=== PATIENT | female | born 1965 | race Caucasian/White ===

== ENCOUNTER → 2021-01-03 | Outpatient (CLI) | payer OTHER ==
--- NOTE | 2021-01-06 08:10 | RAD ---
DATE: 01/03/2021 2:14 PM EXAM: DIGITAL SCREEN BILAT W/CAD HISTORY: Screening COMPARISON: 10/09/2016 Bilateral CC and MLO views of the breasts were performed. Bilateral breast tomosynthesis was performed in CC and MLO projections. This study was interpreted with the benefit of Computerized Aided Detection (CAD). FINDINGS: Breast Density: SCATTERED The breast parenchyma shows scattered fibroglandular densities. Breast parenchyma level B No suspicious masses, microcalcifications or architectural distortion is present to suggest malignancy in either breast. The visualized axillae are unremarkable. IMPRESSION: No mammographic evidence of malignancy. BI-RADS CATEGORY: 1 NEGATIVE RECOMMENDED FOLLOW-UP: 12M 12 MONTH FOLLOW-UP Annual screening mammography is recommended, unless clinically indicated sooner based on symptoms or change in physical exam. PQRS compliance statement: Patient information was entered into a reminder system with a target due date for the next mammogram. Mammography is a sensitive method for finding small breast cancers, but it does not detect them all and is not a substitute for careful clinical examination. A negative mammogram does not negate a clinically suspicious finding and should not result in delay in biopsying a clinically suspicious abnormality. "Our facility is accredited by the [employer] Mammography Program."
== END ==
LOC: MAMMO 14:06
PROVIDERS: ATTEND Nurse Practitioner Family
DX: Z12.31 Encounter for screening mammogram for malignant neoplasm of breast (principal)
CPT/HCPCS: 77067

== ENCOUNTER → 2021-03-07 | Outpatient (CLI) | payer OTHER ==
--- NOTE | 2021-03-07 12:00 | RAD ---
EXAM: Chest, 2 views. HISTORY: Chest pain. Productive cough. COMPARISON: None. FINDINGS: 2 views of the chest are obtained. There is a 2.8 cm right lower lobe pulmonary nodule. The re is no consolidation, protrusion or pneumothorax. The heart is normal in size. IMPRESSION: 1. Right lower lobe pulmonary nodule. This can be better assessed with a CT. 2. No acute pulmonary finding. Electronically signed by: Patricia Katz MD (03/07/2021 11:58 AM) [id number]
== END ==
LOC: RAD 11:24
PROVIDERS: ATTEND Nurse Practitioner Family
DX: R91.1 Solitary pulmonary nodule (principal)
CPT/HCPCS: 71046

== ENCOUNTER 2021-05-20 12:57 | Emergency (ER) | payer SELFPAY ==
[~2021-05-20] VITALS: Ht 165.1 cm; Wt 83.0 kg
--- NOTE | 2021-05-20 13:05 | PHYS DOC ---
General Adult EDM: Chief Complaint: LOWER EXT PAIN HPI: HPI: 56 yo F PMH copd presents to the ed bibems with c/o shortness of breath x2 days with associated ankle swelling and "burning." Is not vaccinated for covid. Stoppped smoking 3 days ago. Reports she has an outpt CT of the lungs pending, ordered by [facility] stating "I don't know why." Reports a breathing treatment more than 4 hours ago. Review of Systems: Review of Systems: Constitutional: Denies fever or chills Eyes: Denies change in visual acuity HENT: Denies nasal congestion or sore throat Respiratory: Denies cough or hemoptysis Cardiovascular: Denies chest pain or edema GI: Denies nausea, vomiting, : Denies dysuria or hematuria Musculoskeletal: Denies back pain or joint deformity Integument: Denies rash or diaphoresis Neurologic: Denies headache, focal weakness or sensory changes Endocrine: Denies polyuria or polydipsia Lymphatic: Denies swollen glands Psychiatric: Denies depression or anxiety Physical Exam: PE: Constitutional: Well developed, well nourished, no acute distress, non-toxic appearance. HENT: Normocephalic, atraumatic, Eyes: EOMI, conjunctiva normal, no discharge. Neck: Normal range of motion, supple, Cardiovascular: S1/2 present, mild tachycardia on arrival Lungs & Thorax: Speaking in full sentences, bilateral equal chest rise, no tachypnea or increased work of breathing, faint expiratory wheezing, no rales/crackles Abdomen: soft, no tenderness, Skin: Warm, dry, Back: No tenderness, no CVA tenderness. [] Extremities: No tenderness, no cyanosis, no unilateral lower extremity edema- cannot appreciated edema Neurologic: Alert and oriented X 3, normal motor function, normal sensory function, no focal deficits noted, steady gait requiring no supplemental oxygen/no labored breathing Psychologic: Affect normal, judgement normal, mood normal. [] EKG: EKG: Sinus rhythm 90 bpm, no axis deviation, normal intervals, no T wave inversion, no ST elevations or ST depressions Radiology/Procedures: Radiology/Procedures: IMAGING REPORT Signed PATIENT: SHERLYN HENNING ACCOUNT: [id number] : 1965 LOCATION: ER AGE: 56 SEX: F EXAM STATUS: PRE ER ORD. PHYSICIAN: JESSICA LOZANO DO REASON: leg swelling, r/o dvt, PROCEDURE: VENOUS LOWER EXT BILATERAL INDICATION: Reason: leg swelling, r/o dvt, / Spl. Instructions: / History: COMPARISON: None. TECHNIQUE: Grayscale, color and doppler ultrasound images were obtained of the bilateral lower extremity venous vasculature. RIGHT: No thrombus identified in the common femoral vein, femoral vein, popliteal vein or visualized calf veins. LEFT: No thrombus identified in the common femoral vein, femoral vein, popliteal vein or visualized calf veins. IMPRESSION: * No thrombus identified in deep venous system of bilateral lower extremities. Electronically signed by: Mariano Allison MD (05/20/2021 1:58 PM) [id number] DICTATED AND SIGNED BY: MARIANO ALLISON MD DATE: 05/20/21 1355 CC: PALAK RIBEIRO; JESSICA LOZANO DO ~MTH0 0 IMAGING REPORT Signed PATIENT: SHERLYN HENNING ACCOUNT: [id number] : 1965 LOCATION: ER AGE: 56 SEX: F EXAM STATUS: REG ER ORD. PHYSICIAN: JESSICA LOZANO DO REASON: soa, r/o pe PROCEDURE: CT ANGIOGRAPHY CHEST EXAM: CT chest with contrast - pulmonary embolus protocol CLINICAL HISTORY: Reason: soa, r/o pe / Spl. Instructions: / History: . COMPARISON: 05/20/2021, 03/07/2021. TECHNIQUE: CT of the chest following the administration of intravenous contrast during the pulmonary arterial phase. Axial, coronal and sagittal reformatted images were generated including MIP images. ---PQRS compliance statement - One or more of the following individualized dose reduction techniques were utilized for this study: 1. Automated exposure control 2. Adjustment of the mA and/or kV according to patient size 3. Use of iterative reconstruction technique--- FINDINGS: CHEST: Diagnostic quality: Suboptimal. Pulmonary emboli: No pulmonary emboli to the level of the distal segmental branches. More peripheral vessels are not well assessed. Right heart strain: None Pulmonary arteries: Normal in caliber. Heart is not enlarged. No pericardial effusion. No pleural effusion or pneumothorax. Right lower lobe lung nodule measures 3.7 x 3 x 3.7 centimeters (series 4 image 85). Small satellite right hilar measures 1.5 x 1.2 cm. No lobar consolidation. No definite mediastinal or hilar lymphadenopathy. No axillary lymphadenopathy. A 1.6 x 1 cm hypodense left lower pole thyroid nodule is seen. Visualized Upper abdomen: Focal nodularity of the right kidney is partially profiled, possibly physiologic or from underlying kidney lesion, incompletely assessed. Bones: No aggressive osseous lesion is seen. Degenerative changes of the spine are seen. Chronic deformity of the sternum likely from old fracture. IMPRESSION: 1. Suboptimal contrast bolus limits evaluation for acute pulmonary embolus. Within these constraints, no definite pulmonary embolus to the distal segmental branches. More peripheral vessels are not well seen. 2. Right lower lobe hypodense lung mass measures 3.7 cm with 1.5 cm satellite nodule in the right hilum. The necrotic mass is a primary consideration and further evaluation with PET scan is recommended. 3. Equivocal right renal mass, only partially visualized. This can be further assessed by ultrasound or abdominal CT. 4. Hypodense left lower pole thyroid nodule can be further assessed by thyroid ultrasound. Electronically signed by: Thanh Chang MD (05/20/2021 3:17 PM) [facility] DICTATED AND SIGNED BY: THANH CHANG MD DATE: 05/20/21 1507 Heart Score: C/O Chest Pain: No Risk Factors: Risk Factors: DM, Current or recent (<one month) smoker, HTN, HLP, family history of CAD, obesity. Risk Scores: Score 0 - 3: 2.5% MACE over next 6 weeks - Discharge Home Score 4 - 6: 20.3% MACE over next 6 weeks - Admit for Clinical Observation Score 7 - 10: 72.7% MACE over next 6 weeks - Early Invasive Strategies Course & Med Decision Making: Course & Med Decision Making Pertinent Labs and Imaging studies reviewed. (See chart for details) Concern for right lower lobe pulmonary nodule with hilar nodule, necrotic lung consolidation on differential and a chronic smoker with no wheezing, requiring no supplemental oxygen. Patient does not meet sepsis criteria. Will admit for PET scan and/or higher level of care with pulmonary consultation. Patient stable at time of transfer and agrees with this plan. I have spoken with the patient and/or caregivers. I have explained the patient's condition, diagnosis and treatment plan based on the information available to me at this time. I have answered the patient's and/or caregivers questions and answered any concerns. The patient and/or caregivers have as good an understanding of the patient's diagnosis, condition and treatment plan as can be expected at this point. The patient has been stabilized within the capability of the emergency department. The patient will be transported for further care and management or will be moved to an observation or inpatient service. I have communicated with the staff or medical practitioner taking over this patient's care. Dragon Disclaimer: Dragon Disclaimer: This electronic medical record was generated, in whole or in part, using a voice recognition dictation system. Departure Departure: Impression: Primary Impression: Right lower lobe pulmonary nodule Additional Impressions: Dyspnea COPD (chronic obstructive pulmonary disease) Disposition: 02 [facility] (to [facility], Dr. Mcmahon) Condition: STABLE Referrals: PALAK RIBEIRO (PCP) JESSICA LOZANO DO May 20, 2021 13:05
[2021-05-20 13:41] LABS: BASO # 0.1 x10^3/uL (0.0-0.2); BASO % 1 % (0-3); EOS # 0.2 x10^3/uL (0.0-0.7); EOS % 3 % (0-3); HEMATOCRIT 34.8 % (36.0-47.0); HEMOGLOBIN 11.8 g/dL (12.0-15.5); LYMPH # 1.6 x10^3/uL (1.0-4.8); LYMPH % 27 % (24-48); MEAN CORPUSCULAR HEMOGLOBIN 33 pg (25-35); MEAN CORPUSCULAR HGB CONC 34 g/dL (31-37); MEAN CORPUSCULAR VOLUME 98 fL (79-100); MONO # 0.3 x10^3/uL (0.0-1.1); MONO % 5 % (0-9); NEUT # 3.7 x10^3uL (1.8-7.7); NEUT % 63 % (31-73); PLATELET COUNT 266 x10^3/uL (140-400); RED BLOOD COUNT 3.55 x10^6/uL (3.50-5.40); RED CELL DISTRIBUTION WIDTH 13.3 % (11.5-14.5); WHITE BLOOD COUNT 5.9 x10^3/uL (4.0-11.0)
[2021-05-20 13:47] LABS: CALCIUM 8.4 mg/dL (8.5-10.1); CREATININE 0.9 mg/dL (0.6-1.0); GFR 64.3; POTASSIUM 4.1 mmol/L (3.5-5.1)
[2021-05-20 14:00] LABS: ALBUMIN 3.5 g/dL (3.4-5.0); TOTAL BILIRUBIN 0.2 mg/dL (0.2-1.0)
--- NOTE | 2021-05-20 14:01 | RAD ---
INDICATION: Reason: leg swelling, r/o dvt, / Spl. Instructions: / History: COMPARISON: None. TECHNIQUE: Grayscale, color and doppler ultrasound images were obtained of the bilateral lower extrem ity venous vasculature. RIGHT: No thrombus identified in the common femoral vein, femoral vein, popliteal vein or visualized calf ve ins. LEFT: No thrombus identified in the common femoral vein, femoral vein, popliteal vein or visualized calf ve ins. IMPRESSION: * No thrombus identified in deep venous system of bilateral lower extremities. Electronically signed by: Srinivas Bains MD (05/20/2021 1:58 PM) [id number]
--- NOTE | 2021-05-20 14:25 | EKG ---
[address] [address] Test Date: 2021-05-20 Test Time: 13:09:19 Pat Name: SHERLYN HENNING Department: Room: Gender: F Mine Promotor: LEIA : 1965 Requested By: JESSICA LOZANO Order Number: [id number] Reading MD: Measurements Intervals [place] Rate: 99 P: 23 MS: 172 QRS: 25 QRSD: 78 T: 46 QT: 350 QTc: 455 Interpretive Statements SINUS RHYTHM NO SPECIFIC ECG ABNORMALITIES RI6.02 No previous ECG available for comparison
[2021-05-20] MEDS ORDERED: IOHEXOL 350 MG/ML 100 ML VIAL. IV ONE (14:30)
--- NOTE | 2021-05-20 15:19 | RAD ---
EXAM: CT chest with contrast - pulmonary embolus protocol CLINICAL HISTORY: Reason: soa, r/o pe / Spl. Instructions: / History: . COMPARISON: 05/20/2021, 03/07/2021. TECHNIQUE: CT of the chest following the administration of intravenous contrast during the pulmonary arterial phase. Axial, coronal and sagittal reformatted images were generated including MIP images. ---PQRS compliance statement - One or more of the following individualized dose reduction techniques were utilized for this study: 1. Automated exposure control 2. Adjustment of the mA and/or kV according to patient size 3. Use of iterative reconstruction technique--- FINDINGS: CHEST: Diagnostic quality: Suboptimal. Pulmonary emboli: No pulmonary emboli to the level of the distal segmental branches. More peripheral vessels are not well assessed. Right heart strain: None Pulmonary arteries: Normal in caliber. Heart is not enlarged. No pericardial effusion. No pleural effusion or pneumothorax. Right lower lobe lung nodule measures 3.7 x 3 x 3.7 centimeters (series 4 image 85). Small satellite right hilar measures 1.5 x 1.2 cm. No lobar consolidation. No definite mediastinal or hilar lymphadenopathy. No axillary lymphadenopathy. A 1.6 x 1 cm hypodense left lower pole thyroid nodule is seen. Visualized Upper abdomen: Focal nodularity of the right kidney is partially profiled, possibly physi ologic or from underlying kidney lesion, incompletely assessed. Bones: No aggressive osseous lesion is seen. Degenerative changes of the spine are seen. Chronic defo rmity of the sternum likely from old fracture. IMPRESSION: 1. Suboptimal contrast bolus limits evaluation for acute pulmonary embolus. Within these constraints , no definite pulmonary embolus to the distal segmental branches. More peripheral vessels are not wel l seen. 2. Right lower lobe hypodense lung mass measures 3.7 cm with 1.5 cm satellite nodule in the right hi lum. The necrotic mass is a primary consideration and further evaluation with PET scan is recommended . 3. Equivocal right renal mass, only partially visualized. This can be further assessed by ultrasound or abdominal CT. 4. Hypodense left lower pole thyroid nodule can be further assessed by thyroid ultrasound. Electronically signed by: Thanh Segovia MD (05/20/2021 3:17 PM) [facility]
[2021-05-20 18:52] VITALS: BP 120/83
== END 2021-05-20 19:23 | disposition short-term general hospital (02) ==
LOC: ER 12:57
DX: J44.9 Chronic obstructive pulmonary disease, unspecified (principal); R91.1 Solitary pulmonary nodule; R06.02 Shortness of breath
CPT/HCPCS: 36415; 71045; 71275; 80053; 83880; 84484; 85025; 93005; 93970; 99285; Q9967

== ENCOUNTER 2022-02-27 12:23 | Emergency (ER) | payer OTHER ==
[~2022-02-27] VITALS: Ht 165.1 cm; Wt 92.7 kg
--- NOTE | 2022-02-27 12:32 | PHYS DOC ---
Past History Past Medical History: Cancer, COPD, Hypertension Additional Past Medical Histor: Lung CA Past Surgical History: Tubal ligation Smoking: Quit Greater Than 1 Year Alcohol Use: Rarely Drug Use: None General Adult EDM: Chief Complaint: MECHANICAL FALL HPI: HPI: Pt is a 56 yo F with a hx of lung CA presents via EMS c/o a fall 2 days ago. Pt slipped and fell while mopping and hit the back of her head on her wood bed frame. Reports she slipped on the wet floor. Pt reports LOC. She c/o DODD, neck pain, and n/v since the fall. Pt states before that fall she has been feeling dizzy and off balance. She last saw her oncologist 3 weeks ago. She denies numbness/tingling and focal weakness. Denies fever/chills. Review of Systems: Review of Systems: Constitutional: Denies fever or chills; reports generalized weakness Eyes: Denies redness or eye pain HENT: Denies nasal congestion or sore throat Respiratory: Denies cough or shortness of breath Cardiovascular: Denies chest pain or palpitations GI: Denies abdominal pain; reports nausea and vomiting : Denies dysuria or hematuria Musculoskeletal: Denies back pain or joint pain; reports neck pain Integument: Denies rash or skin lesions Neurologic: Denies focal weakness or sensory changes; reports DODD Complete systems were reviewed and found to be within normal limits, except as documented in this note. Allergies: Allergies: Allergies Coded Allergies Type Severity Reaction Last Updated Verified No Known Drug Allergies 05/20/21 No Physical Exam: PE: Constitutional: Well developed, well nourished, no acute distress, non-toxic appearance HENT: Normocephalic, tenderness on L posterior occiput Eyes: PERRL, EOMI, conjunctiva normal, no discharge Neck: Normal range of motion, supple, C spine tenderness to palpation Lungs & Thorax: No respiratory distress, equal chest rise and fall Abdomen: Soft, no tenderness Skin: Warm, dry, no erythema, no rash Back: No tenderness, no CVA tenderness Extremities: No tenderness, ROM intact, no edema Neurologic: Alert and oriented X 3, normal motor function, normal sensory function, no focal deficits noted, nl [id number] Psychologic: Affect normal, judgment normal EKG: EKG: @1315 NSR at 92bpm, Q wave in III, NO ST elevation, QRS 90ms, QT/QTc 3638/460ms Radiology/Procedures: Radiology/Procedures: PROCEDURE: CT HEAD AND CERVICAL SPINE WO EXAMINATION: CT HEAD AND C-SPINE WO. TECHNIQUE: Noncontrast axial images of the brain and cervical spine with coronal and sagittal reconstructions were obtained. One or more of the following radiation dose reduction techniques was used: automated exposure control, adjustment of mA and/or KV according to patient size, and/or utilization of iterative reconstruction technique. HISTORY: 56 years Female headache, nausea, neck pain. . FINDINGS: CT HEAD: There is no intracranial hemorrhage. There are areas of hypodensity in the brain parenchyma suggestive of vasogenic edema with the probable underlying catheter nodules concerning for from metastatic disease seen in the parietal lobes, the occipital lobes, and in the cerebellum. There is mild dilatation of the ventricular system. There is no extra-axial fluid collection. The skull, the orbits and the paranasal sinuses appear grossly unremarkable. CT cervical spine: There is a minimal anterior translation of C4 over C5, could be degenerative, otherwise the alignment of the cervical spine appears satisfactory. The vertebral body heights are preserved. Disc heights are also generally preserved. There is straightening of the cervical spine curvature could be related to muscle spasm. There are prominent posterior osteophytes seen at the C5/6 and C6/7 with anterior osteophytes also seen at these levels. There is prominent neural foraminal stenosis at these levels as well, moderate to severe on the right side and moderate on the left side. No cervical spine fracture seen. IMPRESSION: CT HEAD: 1. No intracranial hemorrhage. 2. Brain abnormalities suggestive of metastatic disease. Further evaluation with the brain MRI, preferably with and without contrast is recommended. 3. Mild hydrocephalus. CT cervical spine: Advanced degenerative changes prominent degenerative changes. No acute process. Electronically signed by: Armen Cintron MD (02/27/2022 1:32 PM) [id number] Heart Score: C/O Chest Pain: N/A Course & Med Decision Making: Course & Med Decision Making 56 yo F who presents via EMS after a fall 2 days ago. Patient reports she slipped on a wet floor and struck her head. Reports has had nausea and headache since. Patient does report some dizziness and feeling off balance prior to this episode however. EKG stable. Labs obtained and posted to chart. CT head/cervical spine obtained as well. CT head with findings concerning for metastatic disease. Discussed these findings with patient who reports she was unaware of any metastatic findings. A copy of CT report given to patient to use give to her doctors for further evaluation. Prescriptions for continued nausea and headache medication provided. A prescription for a walker also provided for patient safety. Patient stable for discharge with outpatient follow-up with PCP/oncology. Discussed findings and plan with patient, who acknowledges understanding and agreement. Raiza Disclaimer: Raiza Disclaimer: This electronic medical record was generated, in whole or in part, using a voice recognition dictation system. Departure Departure: Impression: Primary Impression: Dizziness Additional Impression: Abnormal CT of brain Disposition: HOME / SELF CARE / HOMELESS Condition: STABLE Referrals: PALAK RIBEIRO (PCP) Patient Instructions: Dizziness, [id number], Metastatic Brain Tumor, Metastatic Cancer, Questions and Answers Additional Instructions: There is concern that you may have signs of metastatic disease on your CT results. Please give copy of your CT results to your doctors for further evaluation. This would explain your dizziness and headaches. Scripts [walker] No Conflict Check UNIT, #1 Utilize with ambulation. RE: Ataxia, frequent falls Prov: MARYSE SOARES DO 02/27/22 Ondansetron (ONDANSETRON ODT) 4 Mg Tab.rapdis 1 TAB PO PRN Q6-8HRS PRN for NAUSEA, #16 TAB Prov: MARYSE SOARES DO 02/27/22 Butalb/Acetaminophen/Caffeine ([id number] 50-325-40) 1 Each Tablet 1 EACH PO Q6HRS PRN for HEADACHE, #14 TAB Prov: MARYSE SOARES DO 02/27/22 MARYSE SOARES DO Feb 27, 2022 12:32
[2022-02-27] MEDS ORDERED: BUTALB/APAP/CAFEIN 50/325/40MG TABLET. PO ONE (12:45)
[2022-02-27] MEDS ORDERED: ONDANSETRON ODT 4 MG TAB.RAPDIS PO ONE (12:45)
[2022-02-27] MEDS ORDERED: IV NORMAL SALINE 1,000ML 1,000 ML IV ONE (13:00)
[2022-02-27] MEDS ORDERED: ALBUTEROL SULFATE 2.5 MG/3 ML NEBU. ONE (13:21)
[2022-02-27] MEDS ORDERED: IPRATRPIUM/ALBUTEROL 0.5/2.5MG 3 ML NEBU. NEB ONE (13:30)
--- NOTE | 2022-02-27 13:35 | RAD ---
EXAMINATION: CT HEAD AND C-SPINE WO. TECHNIQUE: Noncontrast axial images of the brain and cervical spine with coronal and sagittal recon structions were obtained. One or more of the following radiation dose reduction techniques was used: automated exposure control , adjustment of mA and/or KV according to patient size, and/or utilization of iterative reconstructio n technique. HISTORY: 56 years Female headache, nausea, neck pain. . FINDINGS: CT HEAD: There is no intracranial hemorrhage. There are areas of hypodensity in the brain parenchyma suggestiv e of vasogenic edema with the probable underlying catheter nodules concerning for from metastatic dis ease seen in the parietal lobes, the occipital lobes, and in the cerebellum. There is mild dilatation of the ventricular system. There is no extra-axial fluid collection. The skull, the orbits and the paranasal sinuses appear luis sly unremarkable. CT cervical spine: There is a minimal anterior translation of C4 over C5, could be degenerative, otherwise the alignment of the cervical spine appears satisfactory. The vertebral body heights are preserved. Disc heights are also generally preserved. There is straigh tening of the cervical spine curvature could be related to muscle spasm. There are prominent posterior osteophytes seen at the C5/6 and C6/7 with anterior osteophytes also se en at these levels. There is prominent neural foraminal stenosis at these levels as well, moderate to severe on the right side and moderate on the left side. No cervical spine fracture seen. IMPRESSION: CT HEAD: 1. No intracranial hemorrhage. 2. Brain abnormalities suggestive of metastatic disease. Further evaluation with the brain MRI, prefe rably with and without contrast is recommended. 3. Mild hydrocephalus. CT cervical spine: Advanced degenerative changes prominent degenerative changes. No acute process. Electronically signed by: Armen Cintron MD (02/27/2022 1:32 PM) [id number]
--- NOTE | 2022-02-27 13:51 | RAD ---
EXAM: XR CHEST 1V 02/27/2022 1:40 PM CLINICAL INDICATION: Wheezing COMPARISON: Chest radiograph and CT chest 09/20/2021 TECHNIQUE: AP view of the chest FINDINGS: There is a right chest wall port with tip over the superior vena cava. The heart is normal in size. The lungs are hypoexpanded. The right lower lobe mass is less conspicuous. There are mild r ight medial basilar opacities. No pleural effusion or pneumothorax. Old right proximal humerus fractu re. IMPRESSION: 1. New right medial basilar opacities suspicious for pneumonia. 2. The right lower lobe mass on the prior exams is less conspicuous. Electronically signed by: Rita Handy MD (02/27/2022 1:48 PM) [id number]
[2022-02-27 14:23] LABS: BASO % 1 % (0-3); EOS # 0.1 x10^3/uL (0.0-0.7); EOS % 2 % (0-3); HEMATOCRIT 39.5 % (36.0-47.0); HEMOGLOBIN 13.2 g/dL (12.0-15.5); LYMPH # 0.8 x10^3/uL (1.0-4.8); LYMPH % 14 % (24-48); MEAN CORPUSCULAR HEMOGLOBIN 37 pg (25-35); MEAN CORPUSCULAR HGB CONC 33 g/dL (31-37); MEAN CORPUSCULAR VOLUME 111 fL (79-100); MONO # 0.2 x10^3/uL (0.0-1.1); MONO % 4 % (0-9); NEUT # 4.4 x10^3uL (1.8-7.7); NEUT % 80 % (31-73); PLATELET COUNT 269 x10^3/uL (140-400); RED BLOOD COUNT 3.57 x10^6/uL (3.50-5.40); RED CELL DISTRIBUTION WIDTH 14.3 % (11.5-14.5); WHITE BLOOD COUNT 5.5 x10^3/uL (4.0-11.0)
[2022-02-27 15:07] LABS: BACTERIA,URINE 0 /HPF (0-FEW); CLARITY,URINE CLEAR; COLOR,URINE YELLOW; GLUCOSE,URINE NEG (NEG); NITRITE,URINE NEG (NEG); RBC,URINE OCC /HPF (0-2); SQUAMOUS EPITHELIAL CELL,UR MOD /LPF; WBC,URINE 0 /HPF (0-4)
[2022-02-27 15:11] LABS: CALCIUM 9.2 mg/dL (8.5-10.1); CREATININE 0.8 mg/dL (0.6-1.0); GFR 73.7; POTASSIUM 3.5 mmol/L (3.5-5.1)
[2022-02-27 15:34] LABS: ALBUMIN 3.4 g/dL (3.4-5.0); ALBUMIN/GLOBULIN RATIO 0.8 (1.0-1.7); TOTAL BILIRUBIN 0.4 mg/dL (0.2-1.0); TOTAL PROTEIN 7.6 g/dL (6.4-8.2)
[2022-02-27] MEDS ORDERED: ONDA4TAB12 PO (16:30)
[2022-02-27] MEDS ORDERED: walker (16:30)
[2022-02-27] MEDS ORDERED: BUTA1TAB23 PO (16:30)
[2022-02-27 16:35] VITALS: BP 117/79
--- NOTE | 2022-02-28 00:42 | EKG ---
[address] [address] Test Date: 2022-02-27 Test Time: 13:15:18 Pat Name: SHERLYN HENNING Department: Room: Gender: F Engineer Technician: : 1965 Requested By: MARYSE SOARES Order Number: [id number] Reading MD: Darryl Chowdhury Measurements Intervals [place] Rate: 92 P: 38 CA: 172 QRS: 17 QRSD: 80 T: 39 QT: 368 QTc: 460 Interpretive Statements SINUS RHYTHM NORMAL ECG RI6.02 Compared to ECG 05/20/2021 13:09:19 No significant changes Electronically Signed On 03-01-2022 18:19:25 CDT by Darryl Chowdhury
== END 2022-02-27 16:50 | disposition home or self-care (01) ==
LOC: ER 12:23
DX: R42 Dizziness and giddiness (principal); R93.0 Abnormal findings on diagnostic imaging of skull and head, not elsewhere classified; R51.9 Headache, unspecified; M54.2 Cervicalgia; R11.2 Nausea with vomiting, unspecified; I10 Essential (primary) hypertension; J44.9 Chronic obstructive pulmonary disease, unspecified; Z87.891 Personal history of nicotine dependence; Z85.118 Personal history of other malignant neoplasm of bronchus and lung; W01.198A Fall on same level from slipping, tripping and stumbling with subsequent striking against other object, initial encounter; Y93.89 Activity, other specified; Y92.89 Other specified places as the place of occurrence of the external cause; Y99.8 Other external cause status
CPT/HCPCS: 36415; 70450; 71045; 72125; 80053; 81001; 82553; 83605; 83735; 84484; 85025; 85610; 85730; 93005; 94640; 96360; 99285; J7030; Q0162